=== PATIENT | male | born 1960 | race Two or more races ===

== ENCOUNTER 2021-08-30 21:53 | Inpatient (IN) | payer SELFPAY ==
[~2021-08-30] VITALS: Ht 182.9 cm; Wt 86.4 kg
[2021-08-30 23:38] LABS: BASOPHILS % 0.7 % (0.0-2.0); EOSINOPHILS % 0.9 % (0.0-5.0); HEMATOCRIT. 38.7 % (42.0-52.0); HEMOGLOBIN. 12.6 g/dL (14.0-18.0); LYMPHOCYTES % 33.9 % (20.0-50.0); MEAN CORPUSCULAR HEMOGLOBIN 29.7 pg (28.0-32.0); MEAN CORPUSCULAR VOLUME 91.1 fL (80.0-94.0); MEAN PLATELET VOLUME 8.4 fl (7.4-10.4); MONOCYTES % 8.4 % (2.0-8.0); NEUTROPHILS % 56.1 % (40.0-76.0); PLATELET 231 x1000/uL (130-400); RED BLOOD CELL COUNT 4.24 mill/uL (4.7-6.1); RED CELL DISTRIBUTION WIDTH 14.3 % (11.6-14.6)
[2021-08-30 23:47] LABS: CHLORIDE 111 mEq/L (98-107)
[2021-08-30 23:51] LABS: ETHANOL BLOOD < 10 mg/dL
[2021-08-31 04:15] LABS: CLARITY URINE CLEAR (CLEAR); COLOR URINE YELLOW (YELLOW); KETONES URINE NEGATIVE (NEGATIVE); LEUKOCYTE ESTERASE URINE NEGATIVE (NEGATIVE); NITRITE URINE NEGATIVE (NEGATIVE); OCCULT BLOOD URINE NEGATIVE (NEGATIVE); PH URINE 6.5 (4.5-8.0); PROTEIN URINE NEGATIVE (NEGATIVE); UROBILINOGEN URINE 0.2 E.U./dL (0.2-1.0)
[2021-08-31] MEDS ORDERED: ACETAMINOPHEN 325MG TABLET PO SCH (04:15)
[2021-08-31] MEDS ORDERED: MORPHINE SULFATE 2 MG/ML CPJ (NOT FOR IM USE) IV SCH (04:15)
[2021-08-31] MEDS ORDERED: TETANUS, DIPHTHERIA, PERTUSSIS VAC/PF 0.5ML (>10YR OLD) IM ONE (05:00)
[2021-08-31 05:03] LABS: *AMPHETAMINES SCREEN URINE NEGATIVE (NEGATIVE); *BARBITURATES SCREEN URINE NEGATIVE (NEGATIVE); *BENZODIAZEPINES SCREEN URINE NEGATIVE (NEGATIVE); *COCAINE SCREEN URINE NEGATIVE (NEGATIVE)
[2021-08-31 05:05] LABS: CANNABINOID URINE SCREEN PRESUMTIVE POSITIVE (NEGATIVE); METHADONE URINE SCREEN NEGATIVE (NEGATIVE); OPIATES URINE SCREEN NEGATIVE (NEGATIVE); PHENCYCLIDINE URINE SCREEN PRESUMTIVE POSITIVE (NEGATIVE)
[2021-08-31] MEDS ORDERED: ONDANSETRON HCL 4MG/2ML INJ IV PRN (11:30)
[2021-08-31] MEDS ORDERED: ACETAMINOPHEN 325MG TABLET PO PRN (11:30)
[2021-08-31] MEDS ORDERED: NA PHOS,M-B/NA PHOS,DI-BA ENEMA 118ML PR PRN (11:30)
[2021-08-31] MEDS ORDERED: CLONIDINE 0.1MG TABLET PO PRN (11:30)
[2021-08-31] MEDS ORDERED: DOCUSATE SODIUM 100MG CAPSULE PO PRN (11:30)
[2021-08-31] MEDS ORDERED: MORPHINE SULFATE 2 MG/ML CPJ (NOT FOR IM USE) IV PRN (11:30)
[2021-08-31] MEDS ORDERED: HYDROCODONE/ACETAMINOPHEN 5/325MG TABLET PO PRN (11:30)
[2021-08-31] MEDS ORDERED: LORAZEPAM 2MG/ML CPJ IV PRN (11:30)
[2021-08-31] MEDS ORDERED: DIPHENHYDRAMINE 50MG/ML VIAL IV PRN (11:30)
[2021-08-31] MEDS ORDERED: IPRATROPIUM/ALBUTEROL 0.5-3(2.5)MG/3ML NEB NEB PRN (11:30)
[2021-08-31] MEDS ORDERED: GUAIFENESIN 200MG/10ML SUGAR FREE UDC PO PRN (11:30)
[2021-08-31] MEDS ORDERED: MAGNESIUM/ALUMINUM HYDROXIDE/SIMETHICONE 30ML UDC PO PRN (11:30)
[2021-08-31] MEDS ORDERED: NALOXONE HCL 0.4MG/ML VIAL IV PRN (12:15)
[2021-08-31] MEDS: ENOXAPARIN 40MG/0.4ML SYR SUBCUT SCH (12:59)
[2021-08-31] MEDS: SODIUM CHLORIDE 0.45% 1,000 ML IV SCH ×2 (12:59→21:33)
[2021-08-31 13:00] VITALS: BP 118/61
[2021-08-31 13:21] VITALS: BP 118/61
[2021-08-31 20:00] VITALS: BP 111/49
[2021-09-01] VITALS: BP 118/52
[2021-09-01 04:00] VITALS: BP 113/64
[2021-09-01 07:18] LABS: BASOPHILS % 0.6 % (0.0-2.0); EOSINOPHILS % 2.1 % (0.0-5.0); HEMATOCRIT. 40.7 % (42.0-52.0); HEMOGLOBIN. 13.3 g/dL (14.0-18.0); LYMPHOCYTES % 31.1 % (20.0-50.0); MEAN CORPUSCULAR HEMOGLOBIN 29.7 pg (28.0-32.0); MEAN CORPUSCULAR VOLUME 90.8 fL (80.0-94.0); MEAN PLATELET VOLUME 9.3 fl (7.4-10.4); MONOCYTES % 6.9 % (2.0-8.0); NEUTROPHILS % 59.3 % (40.0-76.0); PLATELET 211 x1000/uL (130-400); RED BLOOD CELL COUNT 4.48 mill/uL (4.7-6.1); RED CELL DISTRIBUTION WIDTH 14.3 % (11.6-14.6)
[2021-09-01] MEDS: SODIUM CHLORIDE 0.45% 1,000 ML IV SCH ×2 (07:30→17:39)
[2021-09-01 07:49] LABS: CHLORIDE 110 mEq/L (98-107)
[2021-09-01 08:00] VITALS: BP 127/81
[2021-09-01 08:00] LABS: LDL CHOLESTEROL 63 mg/dL (5-100)
[2021-09-01 08:01] LABS: HDL CHOLESTEROL 61 mg/dL (40-59)
[2021-09-01 08:02] LABS: T4 FREE 0.89 ng/dL (0.76-1.46)
[2021-09-01] MEDS: ASPIRIN 81MG EC TABLET PO SCH (08:06)
[2021-09-01] MEDS: ENOXAPARIN 40MG/0.4ML SYR SUBCUT SCH (08:07)
[2021-09-01 12:00] VITALS: BP 133/58
[2021-09-01 16:00] VITALS: BP 130/60
[2021-09-01 20:00] VITALS: BP 158/79
[2021-09-02] VITALS: BP 136/79
[2021-09-02] MEDS: SODIUM CHLORIDE 0.45% 1,000 ML IV SCH ×2 (03:33→15:40)
[2021-09-02 04:00] VITALS: BP 150/78
[2021-09-02 08:00] VITALS: BP 121/58
[2021-09-02] MEDS: ASPIRIN 81MG EC TABLET PO SCH (09:06)
[2021-09-02] MEDS: ENOXAPARIN 40MG/0.4ML SYR SUBCUT SCH (09:07)
[2021-09-02 12:00] VITALS: BP 114/60
[2021-09-02 16:00] VITALS: BP 122/71
[2021-09-02 20:00] VITALS: BP 94/50
[2021-09-03] VITALS: BP 102/53
[2021-09-03] MEDS: SODIUM CHLORIDE 0.45% 1,000 ML IV SCH ×2 (00:25→09:05)
[2021-09-03 04:00] VITALS: BP 97/56
[2021-09-03 08:00] VITALS: BP 94/65
[2021-09-03] MEDS: ASPIRIN 81MG EC TABLET PO SCH (09:03)
[2021-09-03] MEDS: ENOXAPARIN 40MG/0.4ML SYR SUBCUT SCH (09:04)
== END 2021-09-03 10:30 | disposition left against medical advice (07) | DRG 52 ==
LOC: ER 21:53 → 7EST 08-31 09:15 → EDBEDREQ 08-31 09:18 → EDBEDREQTM 08-31 09:18 → ENRESERV 08-31 10:41
PROVIDERS: ADMIT Internal Medicine; ATTEND Internal Medicine
DX: G92.8 Other toxic encephalopathy (principal); F12.10 Cannabis abuse, uncomplicated; F16.10 Hallucinogen abuse, uncomplicated; Z53.29 Procedure and treatment not carried out because of patient's decision for other reasons
CPT/HCPCS: 36415; 70486; 71045; 80053; 80061; 80305; 80307; 80320; 80329; 81003; 84439; 84443; 84484; 85025; 90715; 99285; C1893; J1650; J2060; G0480